=== PATIENT | male | born 1955 | race Caucasian/White ===

== ENCOUNTER 2024-02-17 10:48 | Outpatient (CLI) | payer MEDICARE ==
--- NOTE | 2024-02-21 20:40 | XRAY Report ---
PROCEDURE: Finger(s) LT INDICATIONS: LEFT FINGER CELLULITIS TECHNIQUE: AP hand, 2 views of the fourth finger(s) acquired. COMPARISON: None. FINDINGS: Bones: Ossific density adjacent to the radial aspect of the distal portion middle phalanx of the fou rth digit possibly sequelae of remote trauma. The density is well-corticated and not felt to be relat ed to acute fracture. No acute fracture or dislocation. Soft tissues: No suspicious soft tissue calcifications or masses. Diffuse soft tissue swelling of the fourth digit. IMPRESSION: Ossific density adjacent to the distal portion of the middle phalanx of the fourth digit possibly seq uelae of remote trauma. Diffuse soft tissue swelling of the fourth digit without acute osseous abnorm ality. Reviewed by: Lupillo Flores MD on 02/17/2024 11:56 AM PDT Approved by: Lupillo Flores MD on 02/17/2024 11:56 AM PDT Station ID: [id number]
== END 2024-02-17 10:49 | disposition home or self-care (01) ==
LOC: DI 10:48
PROVIDERS: ATTEND Emergency Medicine
DX: L03.012 Cellulitis of left finger (principal)